=== PATIENT | male | born 1965 | race American Indian/Alaskan Native ===

== ENCOUNTER → 2018-01-30 15:09 | Outpatient (CLI) | payer MEDICAID, OTHER, SELFPAY | PROVIDERS: Visit Provider Physician Assistant | DX: J02.9 Acute pharyngitis, unspecified (principal) | CPT/HCPCS: 87070 ==

== ENCOUNTER 2018-01-30 15:28 | Emergency (ER) | payer MEDICAID, OTHER, SELFPAY ==
[2018-01-30 15:33] VITALS: BP 176/101; PULSE 100; RESP 18; TEMP 36.7; O2SAT 97; BMI 38.0
--- NOTE | 2018-01-30 15:46 | ED_ITS ---
HPI - Dental/Oral <KARY Valiente - Last Filed: 01/30/18 22:27> General Chief complaint: Dental/Oral Stated complaint: SWELLING OF NECK THROAT HURTS Time Seen by Provider: 01/30/18 15:43 Source: patient Mode of arrival: ambulatory Limitations: no limitations History of Present Illness HPI Narrative: 52-year-old healthy male that is an everyday smoker here for complaint of pain and redness and swelling to his throat over the past several days. He reports that approximately 6 days ago he started with a sore throat and some ear pain. He does report having some nasal congestion as well. No known fevers. He does report increasing pain and swelling to his throat over the past couple of days. He denies any swelling to that area. He was seen at the walk-in clinic earlier today and was sent here to the emergency room for further evaluation due to concern for [employer] [employer]. He is tolerating p.o. fluids however he states it does hurt for him to swallow. No distress. He is speaking full sentences. He does have a little bit of hoarseness to his voice. Related Data Previous Rx's Medication Instructions Recorded amoxicillin-pot clavulanate 1 tab PO BID #13 tab 01/30/18 [Augmentin] prednisone 20 mg PO DAILY #18 tab 01/30/18 Allergies Allergy/AdvReac Type Severity Reaction Status Date / Time No Known Drug Allergies Allergy Verified 01/30/18 15:33 Review of Systems <KARY Valiente - Last Filed: 01/30/18 22:27> Constitutional Denies chills, Denies fatigue, Denies fever(s), Denies lethargy and Denies weakness Eyes Denies change in vision, Denies eye discharge, Denies irritation and Denies loss of vision ENT Comments: Swelling to right side of throat Cardiovascular Denies dyspnea and Denies dyspnea on exertion Respiratory Denies cough, Denies dyspnea, Denies dyspnea on exertion and Denies wheezing Gastrointestinal Gastrointestinal: Denies abdominal pain, Denies change in bowel habits, Denies diarrhea, Denies nausea and Denies vomiting Genitourinary Denies hematuria, Denies flank pain, Denies urinary incontinence and Denies urinary urgency Musculoskeletal Denies back pain, Denies muscle weakness, Denies numbness and Denies tingling Integumentary/Breasts Denies pruritus, Denies erythema, Denies rash and Denies wounds Neurologic Denies confusion, Denies loss of vision, Denies numbness, Denies tingling and Denies weakness Psychiatric Denies anxiety, Denies confusion, Denies depression, Denies homicidal ideation and Denies suicidal ideation Endocrine Denies fatigue and Denies flushing Hematologic/Lymphatic Denies easy bruising Allergic/Immunologic Denies wheezing Exam <KARY Valiente - Last Filed: 01/30/18 22:27> Initial Vital Signs Initial Vital Signs: Vital Signs Temperature 98.1 F 01/30/18 15:33 Pulse Rate 100 H 01/30/18 15:33 Respiratory Rate 18 01/30/18 15:33 Blood Pressure 176/101 H 01/30/18 15:33 Pulse Oximetry 97 01/30/18 15:33 Const General: cooperative and well developed Nutritional Appearance: well nourished Orientation: alert, awake, oriented x3 and not confused HENMT Ears: hearing grossly normal bilaterally, external ears normal and TM's normal bilaterally Mouth: oral mucosae normal and mucous membranes abnormal Throat: peritonsillar mass (Tonsillar abscess to the right side with uvula displacement to left side. Positive erythema. no exudate) on the right Eyes Conjunctivae: conjunctivae normal Sclera: sclerae normal Pupils: PERRL EOM: EOM intact bilaterally Resp Effort & Inspection: normal respiratory effort, able to speak in complete sentences, no respiratory distress and no use of accessory muscles Auscultation: clear to auscultation bilaterally, no rales, no rhonchi and no wheezes Cardio Rate: regular rate Rhythm: regular rhythm Heart Sounds: no click, no gallops, no murmurs and no rubs GI Inspection: non-distended Palpation: soft, no hepatosplenomegaly, No guarding, No pulsatile mass and No tender Auscultation: normal bowel sounds Skin General: no rashes or lesions noted, No jaundice and No petechiae Neuro General: alert, oriented x3, gait normal and no focal motor deficits Speech: speech normal <Mike Barahona DO - Last Filed: 01/31/18 07:06> Initial Vital Signs Initial Vital Signs: Vital Signs Temperature 98.1 F 01/30/18 15:33 Pulse Rate 100 H 01/30/18 15:33 Respiratory Rate 18 01/30/18 15:33 Blood Pressure 176/101 H 01/30/18 15:33 Pulse Oximetry 97 01/30/18 15:33 Course <KARY Valiente - Last Filed: 01/30/18 22:27> Orders Ordered: Discontinued Medications Amoxicillin/Clavulanate Potassium (Augmentin 875-125 Mg) 1 tab PO NOW ONE Stop: 01/30/18 18:26 Last Admin: 01/30/18 18:41 Dose: 1 tab Hydromorphone HCl (Dilaudid) 0.5 mg IV NOW ONE Stop: 01/30/18 17:52 Last Admin: 01/30/18 17:53 Dose: 0.5 mg Dexamethasone 20 mg/ Sodium (Chloride) 52 mls @ 208 mls/hr IV NOW ONE Stop: 01/30/18 17:30 Last Infusion: 01/30/18 18:15 Dose: 0 mls/hr Admin: 01/30/18 17:59 Dose: 208 mls/hr Sodium Chloride (Normal Saline 0.9%) 1,000 mls @ 2,000 mls/hr IV BOLUS ONE Stop: 01/30/18 17:58 Last Infusion: 01/30/18 19:29 Dose: 0 mls/hr Admin: 01/30/18 17:43 Dose: 2,000 mls/hr Sodium Chloride (Normal Saline 0.9%) 1,000 mls @ 1,000 mls/hr IV BOLUS ONE Stop: 01/30/18 18:51 Last Infusion: 01/30/18 19:30 Dose: 0 mls/hr Admin: 01/30/18 18:17 Dose: 1,000 mls/hr Sodium Chloride (Normal Saline 0.9%) 1,000 mls @ 1,000 mls/hr IV BOLUS ONE Stop: 01/30/18 18:51 Last Admin: 01/30/18 18:42 Dose: Tramadol HCl (Ultram) 50 mg PO NOW ONE Stop: 01/30/18 17:09 Last Admin: 01/30/18 17:43 Dose: Vital Signs - 8 hr 01/30/18 15:33 01/30/18 18:20 01/30/18 19:37 Temperature 98.1 F Pulse Rate 100 H 90 95 H Respiratory Rate 18 12 16 Blood Pressure 176/101 H 156/85 H Blood Pressure [Left Arm] 164/70 H Pulse Oximetry 97 96 96 <Mike Barahona DO - Last Filed: 01/31/18 07:06> Orders Ordered: Discontinued Medications Amoxicillin/Clavulanate Potassium (Augmentin 875-125 Mg) 1 tab PO NOW ONE Stop: 01/30/18 18:26 Last Admin: 01/30/18 18:41 Dose: 1 tab Hydromorphone HCl (Dilaudid) 0.5 mg IV NOW ONE Stop: 01/30/18 17:52 Last Admin: 01/30/18 17:53 Dose: 0.5 mg Dexamethasone 20 mg/ Sodium (Chloride) 52 mls @ 208 mls/hr IV NOW ONE Stop: 01/30/18 17:30 Last Infusion: 01/30/18 18:15 Dose: 0 mls/hr Admin: 01/30/18 17:59 Dose: 208 mls/hr Sodium Chloride (Normal Saline 0.9%) 1,000 mls @ 2,000 mls/hr IV BOLUS ONE Stop: 01/30/18 17:58 Last Infusion: 01/30/18 19:29 Dose: 0 mls/hr Admin: 01/30/18 17:43 Dose: 2,000 mls/hr Sodium Chloride (Normal Saline 0.9%) 1,000 mls @ 1,000 mls/hr IV BOLUS ONE Stop: 01/30/18 18:51 Last Infusion: 01/30/18 19:30 Dose: 0 mls/hr Admin: 01/30/18 18:17 Dose: 1,000 mls/hr Sodium Chloride (Normal Saline 0.9%) 1,000 mls @ 1,000 mls/hr IV BOLUS ONE Stop: 01/30/18 18:51 Last Admin: 01/30/18 18:42 Dose: Tramadol HCl (Ultram) 50 mg PO NOW ONE Stop: 01/30/18 17:09 Last Admin: 01/30/18 17:43 Dose: Vital Signs - 8 hr 01/30/18 15:33 01/30/18 18:20 01/30/18 19:37 Temperature 98.1 F Pulse Rate 100 H 90 95 H Respiratory Rate 18 12 16 Blood Pressure 176/101 H 156/85 H Blood Pressure [Left Arm] 164/70 H Pulse Oximetry 97 96 96 MDM - Dental/Oral <Ben KARY Griffiths - Last Filed: 01/30/18 22:27> [facility] Narrative Medical decision making narrative: Signs and symptoms presents as a peritonsillar abscess. Discussed case with Dr. Scales ENT who recommended given patient high dose Decadron 20 mg here in the emergency room and 2 L of normal saline fluid. He is placed on Augmentin 1st dose given emergency room tonight. He is then placed on a prednisone taper dose. Patient to follow up with ENT on Friday. Patient to call the office and schedule follow-up appointment. Ibuprofen and Tylenol alternating every 3 hr as needed for discomfort and fever. For any worsening symptoms return to the emergency room. Discharge Plan Departure Patient Disposition: Home Clinical Impression: Abscess, peritonsillar Discharge Date/Time: 01/30/18 19:37 Interventions: ED Discharge Assessment Last Done: 01/30/18 19:37 Instructions: DI for Peritonsillar Abscess -- Adult Activity Restrictions/Additional Instructions: Signs and symptoms presents as a peritonsillar abscess. Urine given steroids in the emergency room to decrease inflammation and reduce swelling. You also started on antibiotics fill prescription tomorrow for rest of the antibiotics and take as directed. Use [id number] Tylenol and Motrin as needed for discomfort. Plenty of fluids. You also prescribed oral steroids take as directed. Call ENT at number provided to schedule follow-up on appointment on Friday. Informed them that you were seen in the emergency room and that Dr. Scales was contacted and he would like for you to be seen in the [place] office on Friday. If any worsening symptoms return to the emergency room. Prescriptions: New prednisone 20 mg tablet 20 mg PO DAILY Qty: 18 RF: 0 amoxicillin-pot clavulanate [Augmentin] 875-125 mg tablet 1 tab PO BID Qty: 13 RF: 0 Referrals: Zach Castro MD [Physician] - <Mike Barahona DO - Last Filed: 01/31/18 07:06> Cosign ED Attending Cossofiature Attestation: I was available for consultation during this patient's emergency department encounter
[2018-01-30] MEDS: SODIUM CHLORIDE 0.9% 1,000 ML 2000 ML IV (17:43)
[2018-01-30] MEDS: HYDROMORPHONE 1 MG INJ 0.5 MG IV (17:53)
[2018-01-30] MEDS: DEXAMETHASONE 20 MG in SODIUM CHLORIDE 0.9% 50 ML 208 ML IV (17:59)
[2018-01-30] MEDS: SODIUM CHLORIDE 0.9% 1,000 ML 1000 ML IV (18:17)
[2018-01-30 18:20] VITALS: BP 164/70; PULSE 90; RESP 12; O2SAT 96
[2018-01-30] MEDS: AMOXICILLIN/CLAV 875/125 MG 1 TAB PO (18:41)
[2018-01-30 19:37] VITALS: BP 156/85; PULSE 95; RESP 16; O2SAT 96
== END 2018-01-30 19:37 | disposition home or self-care (01) ==
PROVIDERS: Emergency Provider Nurse Practitioner Family
DX: J36 Peritonsillar abscess (principal); J02.9 Acute pharyngitis, unspecified
CPT/HCPCS: 36591; 87070; 96361; 96365; 96375; 99283; 99284; J1100; J1170

== ENCOUNTER 2018-04-26 08:17 | Emergency (ER) | payer MEDICAID, OTHER, SELFPAY ==
[2018-04-26 08:31] VITALS: BP 131/88; PULSE 77; RESP 20; TEMP 36; O2SAT 97; BMI 39.4
--- NOTE | 2018-04-26 09:26 | ED_ITS ---
HPI - Skin/Abscess/Foreign Bdy General Chief complaint: Skin/Abscess/Foreign Body Stated complaint: BUMPS AND SWELLING ON HEAD Time Seen by Provider: 04/26/18 08:54 Source: patient Mode of arrival: ambulatory Limitations: no limitations History of Present Illness HPI narrative: patient is a 52-year-old male who presents with sores on his scalp. he states about 5 days ago he started to notice some pain and discomfort he then noticed few lesions. He was seen evaluated at a walk-in clinic where he was put on Bactrim 2 days ago. he says he is having increasing swelling on his left side continues to have pain does not feel like he is getting any better. MD complaint: rash Onset (ago): day(s) Location: head Severity: moderate Quality: burning and sharp Related Data Previous Rx's Medication Instructions Recorded amoxicillin-pot clavulanate 1 tab PO BID #13 tab 01/30/18 [Augmentin] prednisone 20 mg PO DAILY #18 tab 01/30/18 acyclovir 800 mg PO 5XD #70 tab 04/26/18 hydrocodone-acetaminophen [Ingalls] 1 tab PO Q4-6H PRN #14 tab 04/26/18 prednisone 50 mg PO DAILY #5 tab 04/26/18 Allergies Allergy/AdvReac Type Severity Reaction Status Date / Time No Known Drug Allergies Allergy Verified 01/30/18 15:33 Review of Systems Review of Systems ROS Unobtainable: All systems reviewed & are unremarkable except as noted in HPI and below Constitutional Denies chills, Reports fever(s) and Denies frequent falls ENT Ears, Nose, Mouth, and Throat: Denies dizziness Cardiovascular Denies chest pain, Denies irregular heart rhythm, Denies lightheadedness, Denies palpitations, Denies dyspnea, Denies dyspnea on exertion and Denies orthopnea Respiratory Denies cough, Denies dyspnea, Denies dyspnea on exertion and Denies wheezing Genitourinary Denies hematuria, Denies flank pain, Denies urinary incontinence and Denies urinary urgency Musculoskeletal Denies numbness Integumentary/Breasts Denies pruritus, Denies erythema, Denies rash and Denies wounds Neurologic Denies behavioral changes, Denies confusion, Denies dizziness, Denies frequent falls and Denies numbness Psychiatric Denies behavioral changes and Denies confusion Endocrine Denies palpitations Allergic/Immunologic Denies wheezing [facility] Social History Smoking Status: Never smoker Exam Initial Vital Signs Initial Vital Signs: Vital Signs Temperature 96.8 F L 04/26/18 08:31 Pulse Rate 77 04/26/18 08:31 Respiratory Rate 20 04/26/18 08:31 Blood Pressure 131/88 04/26/18 08:31 Pulse Oximetry 97 04/26/18 08:31 GENERAL: Well-appearing, well-nourished and in no acute distress. NECK: left anterior cervical lymphadenopathy CARDIOVASCULAR: peripheral pulses in tact, cap refill <2 sec RESPIRATORY: No respiratory distress, speaks in full sentences without diffi culty EXTREMITIES: Normal range of motion, no clubbing or edema. Neurovascularly intact NEUROLOGICAL: Cranial nerves II through XII grossly intact. Normal gait and speech. SKIN: Left scalp temporal area grouped vesicular lesions no surrounding erythema no fluctuation Course Vital Signs - 8 hr 04/26/18 08:31 04/26/18 09:37 Temperature 96.8 F L Pulse Rate 77 87 Respiratory Rate 20 16 Blood Pressure 131/88 Blood Pressure [Left Arm] 128/74 Pulse Oximetry 97 97 MDM - Skin/Abscess/Foreign Bdy MDM Narrative Medical decision making narrative: Rash in symptoms concerning for shingles. I discussed with him treatment and being contagious. At this time does not appear to have affected the ear I or nose. It is actually not on his face at all only in his scalp. I discussed with him warning signs and return to the ED. Discharge Plan Departure Patient Disposition: Home Clinical Impression: Shingles Qualifiers: Herpes zoster complications: without complications Qualified Code(s): B02.9 - Zoster without complications Discharge Date/Time: 04/26/18 09:40 Interventions: ED Discharge Assessment Last Done: 04/26/18 09:40 Instructions: Herpes Zoster Vaccine, DI for Shingles Activity Restrictions/Additional Instructions: *You have been diagnosed with shingles *What to do: you are contagious to people who have not had chickenpox or chickenpox vaccine, and until the vesicles have crusted over. *Continue to take medications as directed --> FAXED TO [facility] [place] - prednisone 50 mg once a day x 5 days - acyclovir 800 mg 5 times a day for 10 days - Ingalls 1 tab every 6 hr if needed for severe pain *Follow up with your primary care provider in 2-3 days [and follow up with ortho, urology etc] *Return to ER if you should have [such as] [or] any new, worsening or concerning symptoms CONTROLLED SUBSTANCE DISCHARGE (Narcotoic/benzodiazepine/Flexeril/Phenergan) 1. You have been prescribed narcotic medications, it does have acetaminophen/Tylenol/paracetamol in it so do not take extra Tylenol or Tylenol containing products 2. Please understand that we cannot provide further refills of narcotics, benzodiazepines or controlled substances through the ED and her pain management will need to be through your provider. 3. While on these medications you cannot drive or operate heavy machinery. 4. You cannot sign legal documents or perform any duties such as this. 5. As long as you're taking opiate pain medications he should also be taking a stool softener such as Colace, Dulcolax, MiraLAX or prune juice, to help avoid constipation. Prescriptions: New hydrocodone-acetaminophen [Ingalls] 5-325 mg tablet 1 tab PO Q4-6H PRN (Reason: pain) Qty: 14 RF: 0 acyclovir 800 mg tablet 800 mg PO 5XD Qty: 70 RF: 0 prednisone 50 mg tablet 50 mg PO DAILY Qty: 5 RF: 0 No Action prednisone 20 mg tablet 20 mg PO DAILY Qty: 18 RF: 0 amoxicillin-pot clavulanate [Augmentin] 875-125 mg tablet 1 tab PO BID Qty: 13 RF: 0
[2018-04-26 09:37] VITALS: BP 128/74; PULSE 87; RESP 16; O2SAT 97
== END 2018-04-26 09:40 | disposition home or self-care (01) ==
PROVIDERS: Emergency Provider Emergency Medicine
DX: B02.9 Zoster without complications (principal)
CPT/HCPCS: 99282

== ENCOUNTER → 2019-02-16 13:07 | Outpatient (CLI) | payer MEDICAID, OTHER, SELFPAY | PROVIDERS: Visit Provider Physician Assistant | DX: J02.9 Acute pharyngitis, unspecified (principal) | CPT/HCPCS: 87070 ==

== ENCOUNTER 2021-01-09 18:53 | Emergency (ER) | payer MEDICAID, OTHER, SELFPAY ==
[2021-01-09 18:54] VITALS: BMI 36.7
--- NOTE | 2021-01-09 19:03 | DI.RAD.S_ITS ---
PROCEDURE: XR FINGER RT MIN 2V INDICATIONS: lac to base of R thumb TECHNIQUE: AP hand, 2 views of the 1st finger(s) acquired. COMPARISON: None. FINDINGS: Bones: No fractures or dislocations. No suspicious bony lesions. Soft tissues: No suspicious soft tissue calcifications. No soft tissue foreign bodies. IMPRESSION: No fractures or foreign bodies. Dictated by: Graciela Joseph M.D. on 01/09/2021 at 19:24 Approved by: Graciela Joseph M.D. on 01/09/2021 at 19:25
--- NOTE | 2021-01-09 19:03 | PC.NURSE ---
R 1st finger rewrapped with gauze and coban
--- NOTE | 2021-01-09 19:58 | ED.UPPEXIN ---
HPI - Extremity Injury (Upper) General Chief Complaint: Extremity Injury, Upper Stated Complaint: cut right thumb with knife Time Seen by Provider: 01/09/21 19:58 Source: patient Mode of arrival: Ambulatory Limitations: no limitations History of Present Illness HPI narrative: 55-year-old gentleman with no significant medical history and no primary care physician was skinning a deer this afternoon and with the last cut managed to cut the dorsal surface of his rightthumb near the proximal PIP approximately 1.5 cm. The extensor tendon is clearly lacerated. He is left-hand dominant. He has no other complaints or concerns at this time. Related Data Previous Rx's Medication Instructions Recorded acyclovir 800 mg tablet 800 mg PO 5XD #70 tab 04/26/18 hydrocodone 5 mg-acetaminophen 325 1 tab PO Q4-6H PRN #14 tab 04/26/18 mg tablet ([place]) prednisone 50 mg tablet 50 mg PO DAILY #5 tab 04/26/18 amoxicillin 875 mg-potassium 1 tab PO BID #20 tab 02/16/19 clavulanate 125 mg tablet (Augmentin) cephalexin 500 mg capsule 500 mg PO TID 5 Days #15 cap 01/09/21 Allergies Allergy/AdvReac Type Severity Reaction Status Date / Time No Known Drug Allergies Allergy Verified 01/09/21 19:00 Review of Systems Review of Systems Narrative: Pertinent positive and negative findings as per HPI Remainder of review of systems is otherwise unremarkable for Constitutional: Fevers, chills, weakness ENT: No sore throat, neck pain, ear pain CV: Chest pain, palpitations, Respiratory: Cough, wheeze, dyspnea GI: Nausea, vomiting, diarrhea, : Dysuria, hematuria, Patient History Social History Smoking Status: Never smoker Smoking Status: Never smoker alcohol intake frequency: 0-2 drinks per day Substance Use Type: does not use Exam Narrative Exam Narrative: General: Alert appropriate in no acute distress Respiratory: Able to speak in full sentences, no obvious respiratory distress Skin: No obvious rashes, warm and dry Neurologic: Grossly intact no obvious asymmetries or abnormalities Psych: appropriate insight and affect, cooperative Extremity: Right hand is examined. He has a clean cut approximately 1.5 cm dorsal service basis thumb. He is unable to fully extend his thumb and the edges of the extensor tendon are visible in the cut. There does not appear to be any muscle or significant vascular injury. I he has full sensation to the tip of the thumb. Procedures Laceration Repair Right thumb laceration: Time of procedure: 20:27 Site: hand Side (If applicable): right Size (cm): 1.5 Description: linear Depth: simple, single layer Local Anesthetic: lidocaine 1% and with bicarb Amount of anesthesia used (mL): 2 Pre-repair: wound explored (Completely lacerated extensor tendon) and irrigated extensively Skin layer closed with: nylon Size (cm): 4-0 Number of sutures: 1 Technique: horizontal mattress Course Orders Ordered: ED Orders 01/09/21 19:03 XR finger RT min 2V Stat Discontinued Medications Diphtheria/Tetanus/Acell Pertussis (Tet,Diph,Pertuss(Acell),Vac/Pf 0.5 Ml Syringe) 0.5 ml IM .ONCE ONE Stop: 01/09/21 19:54 Last Admin: 01/09/21 20:07 Dose: 0.5 ml Documented by: Lidocaine/Sodium Bicarbonate (Lido 1%/Sod Bicarb 8.4% (10ml) 10 Ml Syringe) 10 ml INJ NOW ONE Stop: 01/09/21 20:02 Last Admin: 01/09/21 20:07 Dose: 10 ml Documented by: [facility] - Extremity Injury (Upper) Imaging Data Right hand: Radiologist's Impression: FINDINGS:? ? Bones:? No fractures or dislocations.? No suspicious bony lesions.? ? Soft tissues:? No suspicious soft tissue calcifications.? No soft tissue foreign bodies. ? IMPRESSION:? No fractures or foreign bodies. ? ? Dictated by: Graciela Jsoeph M.D. on 01/09/2021 at 19:24? ?? [facility] Narrative Medical decision making narrative: 55-year-old gentleman with no regular interaction with the healthcare system no prior diagnosis has a 1.5 cm cut to the dorsum of the right finger with extensor tendon laceration. Care is briefly reviewed with Dr. Alston, orthopedist on-call. He agreed with repairing the wound splinting in extension and instructing the patient to follow up with [facility] for definitive care and treatment. Patient's tetanus status status is updated in he is placed on 5 days of Keflex given the dirty knife, dirty wound and hand lesion. Discharge Plan Departure Patient Disposition: Home Clinical Impression: Laceration of thumb with tendon involvement Instructions: DI for Laceration Repair -- Finger Activity Restrictions/Additional Instructions: Thank you for coming in today I am sorry you ended up cutting your thumb. Unfortunately you also cut the tendon that helps extend your thumb. In the ER you were given a tetanus shot. Your wound was cleaned and the skin surface edges were closed. You will need to keep the splint in place and complete 5 days of cephalexin, 3 times a day. This is an antibiotic and hopefully will prevent any infection. This prescription was electronically transmitted to [facility]. Using 400 mg of ibuprofen (2 [id number] pills) and 1 Tylenol every 6 hours can be very helpful in controlling pain. You need to follow-up with [facility] at [phone]. Please explain to them that you are in the emergency room, you cut your thumb and the thumb tendon and need to be seen and evaluated for definitive treatment. The orthopedic surgeon will need to do additional procedures to repair that tendon. I hope you heal quickly Prescriptions: New cephalexin 500 mg capsule 500 mg PO TID 5 Days Qty: 15 RF: 0 No Action amoxicillin-pot clavulanate [Augmentin] 875-125 mg tablet 1 tab PO BID Qty: 20 RF: 0 hydrocodone-acetaminophen [[place]] 5-325 mg tablet 1 tab PO Q4-6H PRN (Reason: pain) Qty: 14 RF: 0 acyclovir 800 mg tablet 800 mg PO 5XD Qty: 70 RF: 0 prednisone 50 mg tablet 50 mg PO DAILY Qty: 5 RF: 0
[2021-01-09] MEDS: LIDO 1%/SOD BICARB 8.4% (10ML) 10 ML SYRINGE INJ (20:07)
[2021-01-09] MEDS: TET,DIPH,PERTUSS(ACELL),VAC/PF 0.5 ML SYRINGE IM (20:07)
[2021-01-09 20:52] VITALS: BP 166/88; PULSE 82; RESP 16; O2SAT 97
== END 2021-01-09 20:53 | disposition home or self-care (01) ==
PROVIDERS: Emergency Provider Emergency Medicine
DX: S61.011A Laceration without foreign body of right thumb without damage to nail, initial encounter (principal); W26.0XXA Contact with knife, initial encounter; Z23 Encounter for immunization
CPT/HCPCS: 12001; 73140; 90471; 99283; 99284; 90715

== ENCOUNTER 2022-09-30 05:31 | Emergency (ER) | payer MEDICAID, OTHER, SELFPAY ==
--- NOTE | 2022-09-30 05:32 | DI.US.S_ITS ---
PROCEDURE: US SCROTUM INDICATIONS: swollen, painful testicle TECHNIQUE: Real-time scanning was performed of the scrotum and testicles, with image documentation. Color and pulse Doppler interrogation was performed of both testicles. COMPARISON: None. FINDINGS: Right: Testicle is normal in size at 3.3 x 3.1 x 2.8 cm, and homogenous in echotexture. Epididymis is not visualized. Large hydrocele with internal echo. No varicoceles. Overlying scrotal skin is normal in thickness. Left: Testicle is normal in size at 4.3 x 2.7 x 3.3 cm, and homogeneous in echotexture. Epididymis is not visualized. Large hydrocele with septation. No varicoceles. Overlying scrotal skin is normal in thickness. Doppler: Color and pulse Doppler demonstrate normal and symmetric arterial flow in both testicles also there is less vascularity in the right testicle compared to the left testicle. IMPRESSION: 1. Testicles are normal in size and echotexture. No testicle mass. There is vascularity to testicles bilaterally. The right testicle has less vascularity compared to the left testicle. The finding may be secondary to slightly increased vascularity to the left testicle (suggesting mild orchitis) or slightly decreased vascularity in the right testicle which can be seen in intermittent testicular torsion. Recommend clinical correlation and imaging follow-up. 2. Large hydroceles bilaterally. There is internal echo within the right hydrocele. Extensive septation of the left hydrocele, suggesting hematocele or pyecele. Recommend clinical correlation. 3. Nonvisualization of epididymis bilaterally. No significant discrepancy with the shift mgr radiology preliminary report. Dictated by: Travis Garzon M.D. on 09/30/2022 at 8:39 Approved by: Travis Garzon M.D. on 09/30/2022 at 8:51
[2022-09-30 05:35] VITALS: BP 176/101; PULSE 104; RESP 18; TEMP 36.5; O2SAT 97; BMI 36.2
--- NOTE | 2022-09-30 06:01 | ED_ITS ---
HPI - General Adult General Chief complaint: Urogenital-Male Stated complaint: Swollen testicle Time Seen by Provider: 09/30/22 05:32 Source: patient Mode of arrival: EMS History of Present Illness HPI narrative: 57M nonsmoker with history of HTN presents with EMS for evaluation of painful swollen testicles since friday. He denies any trauma or injury, but states he noticed worsening swelling and pain after mowing the lawn. Today he is in so much pain that he called EMS for transport. He last had solids about 24 hours ago but has been sipping water since. He denies any fever or chills. He denies nausea, vomiting or diarrhea. He is not take blood thinners. Related Data Previous Rx's Medication Instructions Recorded acyclovir 800 mg tablet 800 mg PO 5XD #70 tabs 04/26/18 hydrocodone 5 mg-acetaminophen 325 1 tab PO Q4-6H PRN pain #14 tabs 04/26/18 mg tablet (Kimball) prednisone 50 mg tablet 50 mg PO DAILY #5 tabs 04/26/18 amoxicillin 875 mg-potassium 1 tab PO BID #20 tabs 02/16/19 clavulanate 125 mg tablet (Augmentin) hydrocodone 5 mg-acetaminophen 325 1 tab PO Q4-6H PRN pain #10 tabs 09/30/22 mg tablet levofloxacin 500 mg tablet 500 mg PO DAILY 10 days #10 tabs 09/30/22 Allergies Allergy/AdvReac Type Severity Reaction Status Date / Time No Known Drug Allergies Allergy Verified 01/09/21 19:00 Review of Systems Review of Systems Narrative: GENERAL: Denies chills, fatigue, malaise, fever, sweats. HEENT: Denies sinus pain, ear pain, sore throat, difficulty swallowing, dizziness. RESPIRATORY: Denies dyspnea, cough, wheezing, hemoptysis, sputum. CARDIOVASCULAR: Denies chest pain, palpitations, orthopnea, edema, GASTROINTESTINAL: Denies nausea, vomiting, abdominal pain, diarrhea, constipation, melena. : see HPI MUSCULOSKELETAL: denies weakness, joint pain, or bony pain SKIN: Denies rash, skin lesions, or other NEUROLOGIC: Denies weakness, headache, numbness, change in speech, confusion, seizures, incoordination. PSYCHIATRIC: No concerning psychosocial issues. 12 point review of systems is negative except for those stated above Patient History Social History Smoking Status: Never smoker Smoking Status: Never smoker alcohol intake frequency: 0-2 drinks per day Substance Use Type: does not use Exam Narrative Exam Narrative: GEN: AOx3 and in mild distress EYES: Pupils are equal, round, and reactive to light and accommodation. Extraoccular muscles are intact bilaterally. There is no subconjunctival hemorrhage or exudate. CHEST: Lungs are clear to auscultation bilaterally and free of wheezes, rales, or rhonchi. Heart rate is regular rhythm, there are no murmurs, clicks, rubs, or gallops. There is no chest wall tenderness. ABD: Abdomen is soft and nontender. There is no guarding or rebound. Bowel sounds are normal in all 4 quadrants. There is no mass or organomegaly. EXT: Full painless ROM of all extremities with no loss of sensation or strength. SKIN: Warm, pink, and dry. No erythema or rash Initial Vital Signs Initial Vital Signs: Vital Signs Temperature 97.7 F 09/30/22 05:35 Pulse Rate 104 H 09/30/22 05:35 Respiratory Rate 18 09/30/22 05:35 Blood Pressure 176/101 H 09/30/22 05:35 Pulse Oximetry 97 09/30/22 05:35 Oxygen Delivery Method Room Air 09/30/22 05:35 Course Orders Ordered: Discontinued Medications Levofloxacin (Levofloxacin 250 Mg Tablet) 500 mg PO NOW ONE Stop: 09/30/22 06:39 Last Admin: 09/30/22 06:44 Dose: 500 mg Documented By: ANA Oxycodone/Acetaminophen (Oxycodone/Apap 5/325 Prepack) 1 bottle MISC SEEINSTR ONE Stop: 09/30/22 06:39 Last Admin: 09/30/22 06:44 Dose: 1 bottle Documented By: ANA Consultations Consultation #1: discussed with Dr. Negron (Urology). We have discussed patient history and physical as well as ultrasound findings. He states no immediate intervention needed. Recommends obtaining urine sample. Coverage with fluoroquinolones, rest, testicular elevation been follow-up Vital Signs Vital signs: Vital Signs - 8 hr 09/30/22 05:35 Temperature 97.7 F Pulse Rate 104 H Respiratory Rate 18 Blood Pressure 176/101 H Pulse Oximetry 97 Oxygen Delivery Method Room Air Medical Decision Making Lab Data Labs: Lab Results 09/30/22 Range/Units 06:36 Urine RBC 0-1/hpf (0-5/HPF) Urine WBC 0-1/hpf (0-5/HPF) Ur Squamous Epith Cells 0-1 /hpf (0-5/HPF) Urine Bacteria Few (2-10) H (None) Urine Mucus 3+ H (Negative) Ur Culture Indicated? Cult not indicated Urine Dip Bedside Urine Glucose Negative Bedside Urine Bilirubin - Negative Bedside Urine Ketone ++ 40 Urine Specific [place] 1.02 Bedside Urine Occult Blood - Negative Bedside Urine pH 6 Bedside Urine Protein + 30 Bedside Urine Urobilinogen +/- 1mg Bedside Urine Nitrite - Negative Bedside Urine Leukocytes - Negative Esterase Point of care testing: Urine Dip Bedside Urine Glucose Negative Bedside Urine Bilirubin - Negative Bedside Urine Ketone ++ 40 Urine Specific [place] 1.02 Bedside Urine Occult Blood - Negative Bedside Urine pH 6 Bedside Urine Protein + 30 Bedside Urine Urobilinogen +/- 1mg Bedside Urine Nitrite - Negative Bedside Urine Leukocytes - Negative Esterase MDM Narrative Medical decision making narrative: [57] year old patient presents with scrotal pain, swelling in the absence of trauma or injury, chest pain, shortness of breath, fever, chills Multiple etiologies for patient's symptoms considered including, but not limited to: [torsion vs. hematoma vs. infectious process vs. other] Prior Charts reviewed in our EMR Primary Historian: patient Labs reviewed and interpreted by myself: urine demonstrates Imaging reviewed: US notes complex hydrocele and orchitis Consultations: discussed with Dr. Negron, see details above Patient's symptoms improved over duration of stay with above-stated therapies. Findings and discharge diagnosis discussed with patient/family followed by verbalization of understanding Return precautions discussed with patient/family whom verbalize understanding of diagnosis and plan Discharge Plan Departure Patient Disposition: Home Clinical Impression: Orchitis, Hydrocele in adult Instructions: DI for Orchitis Activity Restrictions/Additional Instructions: *You have been diagnosed with [left-sided orchitis and hydrocele. *What to do: *Please continue to take your regular medications as directed. [x ] New medication prescriptions sent to your pharmacy: [ [facility]] [ ] New medication written as a paper prescription [ ] No new medications given *Please follow up with Dr. Negron in the Urology office as soon as possible, call today for an appointment. Let them know you were seen in the Emergency Department and that we ask that you be seen in follow up. We will electronically transmit a record of today's note if your PCP is in our system *Return to Emergency Department if you should have any new, worsening or concerning symptoms, such as [fever greater than 101 F, shaking chills, worsening pain, persistent vomiting or other bothersome symptoms] You have been prescribed a short course of narcotic medications. These are potentially dangerous and addictive medications that should be used carefully. While on these medications you cannot drive or operate heavy machinery. Additionally, you cannot sign legal documents or perform any duties such as this. Many people get constipated on narcotic medications so it would be advisable to discuss stool softeners with the pharmacist when you roll picker your prescription. Please understand that we cannot provide further refills of narcotics or controlled substances through the ED and your pain management will need to be t hrough your Primary Care Provider Prescriptions: New levofloxacin 500 mg tablet 500 mg PO DAILY 10 Days Qty: 10 0RF hydrocodone-acetaminophen 5-325 mg tablet 1 tab PO Q4-6H PRN (Reason: pain) Qty: 10 0RF No Action amoxicillin-pot clavulanate [Augmentin] 875-125 mg tablet 1 tab PO BID Qty: 20 0RF hydrocodone-acetaminophen [[place]] 5-325 mg tablet 1 tab PO Q4-6H PRN (Reason: pain) Qty: 14 0RF acyclovir 800 mg tablet 800 mg PO 5XD Qty: 70 0RF Rx Instructions: while awake prednisone 50 mg tablet 50 mg PO DAILY Qty: 5 0RF Referrals: Mando Negron MD [Physician] - Stand Alone Forms: Patient Portal/API
[2022-09-30] MEDS: levoFLOXacin 250 MG TABLET 500 MG PO (06:44)
[2022-09-30] MEDS: OXYCODONE/APAP 5/325 PREPACK 1 BOTTLE MISC (06:44)
[2022-09-30 06:57] LABS: Bacteria Urine Few (2-10); RBC Urine 0-1/HPF (0-5/HPF); Squamous Epithelial Cell Urine 0-1 /HPF (0-5/HPF); WBC Urine 0-1/HPF (0-5/HPF)
[2022-09-30 06:58] LABS: Mucus Urine 3+ (Negative)
[2022-09-30 06:59] LABS: Culture Indicated Urine Cult Not Indicated
== END 2022-09-30 07:09 | disposition home or self-care (01) ==
PROVIDERS: Emergency Provider Emergency Medicine
DX: N45.2 Orchitis (principal); N43.3 Hydrocele, unspecified
CPT/HCPCS: 76870; 81003; 81015; 99283